=== PATIENT | female | born 1955 | race Caucasian/White ===

== ENCOUNTER 2023-09-08 19:20 | Inpatient (IN) | payer MEDICARE ==
[2023-09-08] MEDS ORDERED: Sodium Chloride 0.9% 10 ML Syringe FLUSH PRN ×2 (19:51→22:44)
[2023-09-08] MEDS ORDERED: Ondansetron 4 MG/2 ML SDV IVPUSH ONE (19:51)
[2023-09-08] MEDS ORDERED: Sodium Chloride 0.9% 2.5 ML Syringe FLUSH PRN ×2 (19:51→22:44)
[2023-09-08] MEDS ORDERED: Sodium Chloride 0.9% 1,000 ML IV ONE (19:51)
[2023-09-08] MEDS ORDERED: Morphine 4 MG/ML Syringe IVPUSH ONE (19:58)
[2023-09-08] MEDS ORDERED: Bupivacaine 0.5% 30 ML SDV ONE (20:23)
[2023-09-08] MEDS ORDERED: Ropivacaine 0.5% 5 MG/ML 30 ML SDV ONE ×2 (20:33→21:52)
[2023-09-08] MEDS ORDERED: propofoL 50 ML ONE ×2 (20:35→21:21)
[2023-09-08] MEDS ORDERED: fentaNYL 250 MCG/5 ML SDV ONE ×2 (20:35→21:40)
[2023-09-08] MEDS ORDERED: Morphine 10 MG/ML SDV ONE (20:35)
[2023-09-08] MEDS ORDERED: fentaNYL 100 MCG/2 ML SDV ONE (21:15)
[2023-09-08] MEDS ORDERED: Ondansetron 4 MG/2 ML SDV ONE (22:14)
[2023-09-08] MEDS ORDERED: Sugammadex Sodium 200 MG/2 ML VIAL ONE (22:14)
[2023-09-08] MEDS ORDERED: Propofol 200 MG/20 ML SDV ONE (22:14)
[2023-09-08] MEDS ORDERED: Dexamethasone 4 MG/ML 5 ML MDV ONE (22:14)
[2023-09-08] MEDS ORDERED: Rocuronium Bromide 50 MG/5 ML Syringe ONE (22:14)
[2023-09-08] MEDS ORDERED: Sodium Chloride 0.9% 20 ML SDV IV PRN (22:44)
[2023-09-08] MEDS ORDERED: diphenhydrAMINE 50 MG/ML SDV IVPUSH PRN (22:44)
[2023-09-08] MEDS ORDERED: HYDROmorphone 1 MG/ML Syringe IVPUSH PRN (22:44)
[2023-09-08] MEDS ORDERED: Acetaminophen/HYDROcodone 325-5 MG Tab PO PRN (22:44)
[2023-09-08] MEDS ORDERED: Ondansetron 4 MG/2 ML SDV IVPUSH PRN (22:44)
[2023-09-08] MEDS ORDERED: Lactated Ringers 1,000 ML IV SCH (22:45)
[2023-09-09] MEDS: Ketorolac 30 MG/ML SDV IM SCH ×2 (00:03→05:44)
[2023-09-09] MEDS: Cyclobenzaprine 5 MG Tab PO SCH ×3 (00:05→15:09)
[2023-09-09] MEDS: Piperacillin/Tazobactam 3.375 GM in Sodium Chloride 0.9% 100 ML IV SCH ×5 (00:06→11:12)
[2023-09-09 05:50] LABS: HEMATOCRIT 34.9 % (37.0-47.0); HEMOGLOBIN 12.1 g/dL (12.0-16.0); MEAN CORPUSCULAR HEMOGLOBIN 34.4 pg (28.0-32.0); MEAN CORPUSCULAR HGB CONC 34.7 g/dL (32.0-36.0); MEAN CORPUSCULAR VOLUME 99.1 fL (83.0-99.0); MEAN PLATELET VOLUME 10.4 fL (9.4-12.3); PLATELET COUNT,PLT 213 K/uL (150-400); RED BLOOD CELL COUNT 3.52 M/uL (4.10-5.30)
[2023-09-09 06:20] LABS: A/G RATIO 0.9 (0.9-1.6); ALANINE AMINOTRANSFERASE,ALT 58 IU/L (14-63); ALKALINE PHOSPHATASE 143 U/L (46-116); ASPARTATE AMNIOTRANSFERASE,AST 59 IU/L (15-37); BILIRUBIN TOTAL 0.9 mg/dL (0.2-1.0); BLOOD UREA NITROGEN,BUN 10 mg/dL (7.0-18.0); CALCIUM 8.7 mg/dL (8.5-10.1); CARBON DIOXIDE,CO2 26.8 mmol/L (21.0-32.0); CHLORIDE,CL 107 mmol/L (98-107); CREATININE 0.8 mg/dL (0.6-1.0); GLUCOSE RANDOM 148 mg/dL (74-106); POTASSIUM,K 4.2 mmol/L (3.5-5.1); PROTEIN TOTAL,TP 6.5 g/dL (6.4-8.2); SODIUM,NA 142 mmol/L (136-145)
[2023-09-09 06:21] LABS: ESTIMATED GFR 81 mL/min (>60)
[2023-09-09] MEDS ORDERED: Ketorolac 30 MG/ML SDV IVPUSH SCH ×2 (07:35→11:00)
[2023-09-09] MEDS ORDERED: Enoxaparin 40 MG/0.4 ML Syringe SUBCUT SCH (08:00)
[2023-09-09] MEDS ORDERED: Multivitamin Tab PO SCH (09:00)
[2023-09-09] MEDS ORDERED: Sennosides/Docusate Sodium 50-8.6 MG Tab PO SCH (09:00)
== END 2023-09-09 16:16 | disposition home or self-care (01) | DRG 399 ==
LOC: MW.ED 19:20 → MW.MS 19:48 → OBSVTOIN 21:59 → MW.MS 22:00
PROVIDERS: ADMIT Surgery; ATTEND Surgery
PROC: 0WJG4ZZ Inspection of Peritoneal Cavity, Percutaneous Endoscopic Approach (ICD-10-PCS; 2023-09-08)
PROC: 0DTJ0ZZ Resection of Appendix, Open Approach (ICD-10-PCS; principal; 2023-09-08 20:30)
DX: K35.33 Acute appendicitis with perforation, localized peritonitis, and gangrene, with abscess (principal); E86.0 Dehydration; M06.9 Rheumatoid arthritis, unspecified; E11.9 Type 2 diabetes mellitus without complications; K80.20 Calculus of gallbladder without cholecystitis without obstruction; Z87.891 Personal history of nicotine dependence; Z98.890 Other specified postprocedural states; Z90.710 Acquired absence of both cervix and uterus; I10 Essential (primary) hypertension; Z53.31 Laparoscopic surgical procedure converted to open procedure; Z79.899 Other long term (current) drug therapy
CPT/HCPCS: 44950; 51702; 88304; 96361; 96374; 96375; 99284; J0131; J2270 ×2; J2405; J2704 ×2; J2795 ×2; J3010 ×3; J3490 ×2; J7030 ×2; 00840; 36415; 64488; 80053; 85027; 99283; A9270-GY; J1100; J1650; J1885; J2543; J7120